=== PATIENT | male | born 1975 | race Caucasian/White ===

== ENCOUNTER 2018-09-03 09:00 | Day surgery (SDC) | payer BC ==
[~2018-09-03 09:00] MED LIST: ACETAMINOPHEN 1,000 MG/100 ML BTL IV ONE; CEFAZOLIN 2 Gram 2 GM/50 ML BAG IVPB ONE
[2018-09-03] MEDS ORDERED: METHYLPREDNISOLONE 40MG/VIAL IM ONE (09:01)
[2018-09-03] MEDS ORDERED: MIDAZOLAM HCL 2MG/2ML VIAL IV ONE (09:01)
[2018-09-03] MEDS ORDERED: LABETALOL HCL 5MG/ML, 20ML VIAL IV ONE (09:01)
[2018-09-03] MEDS ORDERED: LIDOCAINE 2% MDV (20MG/ML) 20ML VIAL IV ONE (09:01)
[2018-09-03] MEDS ORDERED: DESFLURANE 240 ML BTL INH ONE (09:01)
[2018-09-03] MEDS ORDERED: MORPHINE SULFATE 4 MG/ML VIAL IVP ONE (09:01)
[2018-09-03] MEDS ORDERED: PROPOFOL 10 MG/ML VIAL IV ONE (09:01)
[2018-09-03] MEDS ORDERED: DEXAMETHASONE 4 MG/ML 1ML VIAL IVP ONE (09:01)
[2018-09-03] MEDS ORDERED: BUPIVACAINE 0.5% W/EPI MPF 30 ML VIAL IVP ONE (09:01)
[2018-09-03] MEDS ORDERED: MORPHINE SULFATE 4 MG/ML VIAL ONE (10:51)
--- NOTE | 2018-09-03 15:00 | Operative Note ---
DATE OF SURGERY: 09/03/2018 PREOPERATIVE DIAGNOSIS: Internal derangement of the left knee. POSTOPERATIVE DIAGNOSES: 1. 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 2. Complex degenerative tear involving the anterior horn of the medial meniscus. OPERATION: Left knee arthroscopy with partial medial meniscectomy with intraarticular debridement. Staff Surgeon: Serafin Rodriguez MD Anesthesia: General. Preparation: Chloraprep. Individual Considerations: None. PROCEDURE: The patient was taken to the operating room and placed supine on the operating room table. The patient had a successful induction with general anesthetic. The left lower extremity was prepped and draped in the usual fashion. The patient had a superolateral inflow cannula placed. Skin was infiltrated with 0.5% Marcaine with epinephrine prior. A clear effusion was drained. The knee was inflated with normal saline. An inferomedial and an inferolateral portal were made in a similar fashion. The arthroscope was introduced through the inferolateral portal up into the pouch. Patellofemoral joint basically showed grade 3 change in the patella and areas of exposed bone on the femur. I could not really debride anything on the femur and just smoothed off the patella. There were cartilaginous loose bodies in the gutters and the pouch which were debrided medially. He had a tear of the anterior horn, complex degenerative, of the medial meniscus. This was debrided back to a stable rim with a shaver. The medial and posterior horns were intact. The articular cartilage was intact. Cruciates were normal and lateral compartment structures were basically normal. The knee was then irrigated out with saline to remove loose floating debris. Portals were closed with katrin, and 20 mL of 02.5% plain Marcaine along with 4 mg of morphine and 80 mg of Depo-Medrol were injected into the knee. A sterile bulky compressive dressing was applied. The patient tolerated procedure well. Needle and sponge counts were correct. Estimated blood loss was minimal. He was taken back to recovery in good condition. There were no complications. [facility]ITALMarlon
== END 2018-09-03 12:20 | disposition home or self-care (01) ==
LOC: SUR 09:00
PROVIDERS: ATTEND Orthopaedic Surgery
DX: S83.232A Complex tear of medial meniscus, current injury, left knee, initial encounter (principal); M22.42 Chondromalacia patellae, left knee; Z87.891 Personal history of nicotine dependence
CPT/HCPCS: 29881; 01400; J0690; J2270; J1030